=== PATIENT | female | born 1990 | race Caucasian/White ===

== ENCOUNTER 2018-03-12 07:50 | Emergency (ER) | payer SELFPAY ==
[~2018-03-12] VITALS: Ht 157.5 cm; Wt 52.3 kg
[~2018-03-12 07:50] MED LIST: AMOXICILLIN 50500 MG PO; BACTRIM DS 8001 TAB PO; ESCITALOPRAM; FLEXERIL 1010 MG/TAB PO; IMPLANON68 MG ID; LORTAB 5/500 501 TAB PO; NAPROSYN500 MG PO; NO HOME MEDICATIONS; NORCO 325 MG-51 TAB PO; PEPCID 20MG TAB20 MG PO; PRILOSEC 20MG20 MG PO; PYRIDIUM 100MG100 MG PO; ZOFRAN ODT4 MG PO
[2018-03-12 07:52] VITALS: BP 127/60; TEMP 98.3
[2018-03-12 08:07] LABS: COLLECTION METHOD CLEAN CATCH
[2018-03-12 08:13] LABS: MUCOUS Present /lpf; PH 6 (5-8); SQUAMOUS EPITHELIAL 0-2 /hpf; URINE APPEARANCE Clear; URINE BACTERIA None Seen /hpf; URINE BILIRUBIN Negative (NEGATIVE); URINE BLOOD Negative (NEGATIVE); URINE COLOR Yellow; URINE GLUCOSE Negative (NEGATIVE); URINE KETONE Negative (NEGATIVE); URINE LEUKOCYTE ESTERASE 2+ (NEGATIVE); URINE NITRATE Negative (NEGATIVE); URINE PROTEIN(semi-quant) Negative (NEGATIVE); URINE RBC 0-2 /hpf; URINE UROBILINOGEN Negative (NEGATIVE)
[2018-03-12 08:18] LABS: BASO % 0.2 % (0.0-2.0); EOS # 0.1 (0.0-0.7); EOS % 1.1 % (0-4.0); GRAN # 2.6 (1.4-6.5); GRAN % 49.8 % (42.2-75.2); HEMATOCRIT 40.5 % (37.0-47.0); HEMOGLOBIN 14.1 g/dl (12.5-16.0); LYMPH # 2.1 (1.2-3.4); LYMPH % 40.1 % (20.0-51.0); MEAN CELL VOLUME 92 fl (80.0-100.0); MEAN CORPUSCULAR HEMOGLOBIN 32 pg (27.0-31.0); MEAN CORPUSCULAR HGB CONC 35 g/dl (33.0-37.0); MONO # 0.5 (0.1-0.6); MONO % 8.6 % (1.7-9.3); PLATELET COUNT 208 K/mm3 (130-400); RED BLOOD COUNT 4.41 M/mm3 (4.10-5.30); REDCELL DISTRIBUTION WIDTH-CV 12.4 % (11.5-14.5)
[2018-03-12 08:31] LABS: ALANINE AMINOTRANSFERASE 20 U/L (9-52); ALBUMIN 4.1 gm/dL (3.5-5.0); ALKALINE PHOSPHATASE 53 U/L (50-136); ANION GAP 9 mmol/L (7-16); AST,SGOT 29 U/L (15-37); BILIRUBIN,TOTAL 0.4 mg/dL (0.0-1.0); BLOOD UREA NITROGEN 10 mg/dL (7-17); CARBON DIOXIDE 24 mmol/L (22-30); CHLORIDE 105 mmol/L (98-107); CREATININE, serum 0.72 mg/dL (0.52-1.25); GLUCOSE 79 mg/dL (74-106); LIPASE 168 U/L (23-300); POTASSIUM 4.1 mmol/L (3.4-5.0); SODIUM 138 mmol/L (137-145)
[2018-03-12 08:34] LABS: C-REACTIVE PROTEIN < 0.5 mg/dL (0.0-0.9)
[2018-03-12] MEDS ORDERED: CARAFATE 1GM1 G PO (09:14)
[2018-03-12] MEDS ORDERED: DIFLUCAN200 MG PO (09:14)
[2018-03-12] MEDS ORDERED: CEPHALEXIN500 M1 PO (09:14)
[2018-03-12] MEDS ORDERED: PRILOSEC 20MG20 MG PO (09:14)
[2018-03-12] MEDS ORDERED: ZOFRAN ODT4 MG PO (09:14)
[2018-03-12 09:48] VITALS: PULSE 75
== END 2018-03-12 09:49 | disposition home or self-care (01) ==
LOC: COL.ER 07:50
PROVIDERS: Physician Assistant
DX: N39.0 Urinary tract infection, site not specified (principal)
CPT/HCPCS: J0696; J1885; J2270; J2405; J7030